=== PATIENT | male | born 1960 | race Caucasian/White ===

== ENCOUNTER 2017-12-08 05:50 | Day surgery (SDC) | payer OTHER ==
[2017-12-08] MEDS ORDERED: Ketamine HCl 50 MG/ML IV ONE (05:51)
[2017-12-08] MEDS ORDERED: DIPRIVAN 200 MG/20 ML IV ONE (05:51)
[2017-12-08] MEDS ORDERED: Lactated Ringers 1,000 ML IV SCH (06:00)
[2017-12-08 09:02] VITALS: BP 146/86; PULSE 56; O2SAT 99
--- NOTE | 2017-12-08 12:38 | OP ---
SURGERY DATE/TIME: 01/05/2018 0754 PREOPERATIVE DIAGNOSIS: Screening colonoscopy. POSTOPERATIVE DIAGNOSIS: Sigmoid colon polyp. PROCEDURE: Colonoscopy. SURGEON: Bradley Peng M.D. ANESTHESIA: MAC by Chente Maradiaga CRNA. ESTIMATED BLOOD LOSS: Minimal. SPECIMENS: Cold forceps polypectomy from the sigmoid colon. DESCRIPTION OF PROCEDURE: After informed written consent was obtained, the patient was taken to the endoscopy suite. He underwent monitored anesthesia and a digital rectal exam showed normal sphincter tone and no internal lesions. The scope was inserted into the rectum and sequentially the entire colonic mucosa was traversed. The level of cecum was reached and verified with direct visualization of ileocecal valve. Upon withdrawal careful mucosal inspection revealed no gross abnormalities. There was a small sessile polyp in the sigmoid which was removed with cold forceps in its entirety with minimal blood loss. Upon further withdrawal no other lesions were encountered. Retroflexion was performed prior to withdrawal and showed no internal lesions. The scope was removed and the patient was transferred to the recovery room in excellent condition.
== END 2017-12-08 09:13 | disposition home or self-care (01) ==
LOC: SDC 05:50
PROVIDERS: ATTEND Family Medicine
PROC: 0DBN8ZX Excision of Sigmoid Colon, Via Natural or Artificial Opening Endoscopic, Diagnostic (ICD-10-PCS; principal; 2017-12-08)
DX: K63.5 Polyp of colon (principal); Z12.11 Encounter for screening for malignant neoplasm of colon; E78.5 Hyperlipidemia, unspecified
CPT/HCPCS: 00812; 88305; J2704

== ENCOUNTER 2024-09-28 06:22 | Day surgery (SDC) | payer MEDICARE ==
[2024-09-28 06:40] VITALS: RESP 16
[2024-09-28] MEDS ORDERED: DIPRIVAN 200 MG/20 ML IV ONE ×2 (07:21→07:42)
[2024-09-28 08:32] VITALS: TEMP 97.8; O2SAT 97
[2024-09-28 08:37] VITALS: BP 150/82; PULSE 98
--- NOTE | 2024-09-29 12:08 | OP ---
SURGERY DATE/TIME: 09/28/2024 [id number] PREOPERATIVE DIAGNOSIS: Screening colonoscopy. POSTOPERATIVE DIAGNOSES: 1) Splenic flexure polyp x1. 2) Diverticulosis. PROCEDURE: Colonoscopy. SURGEON: Bradley Peng MD ANESTHESIA: TRAVIS Frank. ESTIMATED BLOOD LOSS: Minimal. SPECIMENS: Cold forceps polypectomy from the splenic flexure. DESCRIPTION OF PROCEDURE AND FINDINGS: After informed written consent was obtained, the patient was taken to the endoscopy suite. He was placed in a left lateral decubitus position, and anesthesia was titrated to desired level of consciousness. Digital rectal exam showed normal sphincter tone and no internal lesions. The scope was inserted in the rectum, and sequentially the entire colonic mucosa was traversed. The level of the cecum was reached and verified under direct visualization of the ileocecal valve. Upon withdrawal, there was a very small sessile polyp in the area of the splenic flexure. This was grasped with the cold forceps and removed with minimal blood loss, sent for pathology. There were scattered diverticula throughout the sigmoid colon but no other mucosal lesions encountered. Prior to withdrawal, retroflexion showed no internal lesions. The scope was removed, and patient was transferred to the recovery room in good condition.
== END 2024-09-28 08:39 | disposition home or self-care (01) ==
LOC: SDC 06:22
PROVIDERS: ATTEND Family Medicine
DX: Z12.11 Encounter for screening for malignant neoplasm of colon (principal); K63.5 Polyp of colon; K57.30 Diverticulosis of large intestine without perforation or abscess without bleeding
CPT/HCPCS: J2704